=== PATIENT | male | born 1950 | race African-American/Black ===

== ENCOUNTER 2017-06-18 22:48 | Emergency (ER) | payer OTHER ==
[~2017-06-18] VITALS: Ht 172.7 cm; Wt 75.8 kg
--- NOTE | ~2017-06-18 | EKG ---
[address] [place] [address] ELECTROCARDIOGRAM REPORT Name: ABIODUN MCKEON JR [id number] Admission: 06/18/17 Attend Phys: Discharge: 06/19/17 Date of : 54 Report #: [id number] THIS REPORT FOR: //name// [facility] ED Test Date: 2017-06-18 Test Time: 23:30:01 Pat Name: ABIODUN MCKEON Department: Room: 170 Gender: M Patient Registration Rep: THERESA : 1950 Requested By: Alana Portillo Order Number: [id number] MD: Jostin Omer Measurements Intervals [place] Rate: 64 P: 45 MD: 155 QRS: 27 QRSD: 90 T: 160 QT: 385 QTc: 398 Interpretive Statements Sinus rhythm Probable left atrial enlargement LVH with secondary repolarization abnormality Compared to ECG 11/11/2008 12:05:52 Early repolarization now present Electronically Signed On 06-19-2017 13:27:40 [employer] by Jostin Omer [email or web address] <ELECTRONICALLY SIGNED> By: Jostin Omer MD 06/19/17 1327 29 29 Jostin Omer MD /DAVID
[2017-06-18 22:55] VITALS: BP 159/74
[2017-06-18 23:23] LABS: ABSOLUTE NEUTROPHILS 2.2 thou/uL (1.4-8.2); BASOPHILS 0.6 % (0.0-2.0); EOSINOPHILS 0.5 % (0.0-3.0); HEMATOCRIT 38.2 % (42.0-52.0); MCH 33.1 pg (26.0-34.0); MCV 97.3 fL (80.0-100.0); MONOCYTES 11.9 % (1.0-8.0); PLATELET COUNT 185 thou/uL (150-400); RBC 3.92 mil/uL (4.50-6.00); WBC 5.3 thou/uL (4.0-11.0)
[2017-06-18 23:34] LABS: ANION GAP 4 mmol/L (7-16); BUN 19 mg/dL (7-18); CALCIUM 9.8 mg/dL (8.5-10.1); CHLORIDE 102 mmol/L (98-107); CO2 32 mmol/L (21-32); CREATININE 1.3 mg/dL (0.7-1.3); GLUCOSE 100 mg/dL (74-106); POTASSIUM 5.3 mmol/L (3.5-5.1); SODIUM 138 mmol/L (136-145)
[2017-06-18 23:42] LABS: ALBUMIN 3.4 g/dL (3.4-5.0); SGOT 32 U/L (15-37); SGPT 29 U/L (30-65); TOTAL BILIRUBIN 0.5 mg/dL (<0.1-1.0); TOTAL PROTEIN 7.7 g/dL (6.4-8.2); TROPONIN-I < 0.04 ng/mL (<0.06)
[2017-06-19 00:17] VITALS: BP 159/74
[2017-06-19] MEDS ORDERED: HYDROCHLOROTHIA25 M2 PO (00:18)
[2017-06-19] MEDS ORDERED: PLAVIX 75 MG TA75 M1 PO (00:19)
[2017-06-19] MEDS ORDERED: GLUCOTROL5 MG PO (00:19)
[2017-06-19] MEDS ORDERED: HYDRALAZINE 10M10 MG PO (00:19)
[2017-06-19] MEDS ORDERED: NORVASC10 MG PO (00:19)
[2017-06-19] MEDS ORDERED: TRICOR145 MG PO (00:19)
[2017-06-19] MEDS ORDERED: LIPITOR80 MG PO (00:20)
[2017-06-19] MEDS ORDERED: CYMBALTA20 MG PO (00:20)
[2017-06-19] MEDS ORDERED: METFORMIN HCL500 MG PO (00:21)
[2017-06-19] MEDS ORDERED: LASIX 20 MG TAB20 MG PO (00:21)
[2017-06-19] MEDS ORDERED: ISOSORBIDE MONO60 M1 PO (00:21)
[2017-06-19] MEDS ORDERED: CARVEDILOL3.125 MG PO (00:21)
[2017-06-19 01:02] VITALS: BP 151/76
== END 2017-06-19 01:04 | disposition left against medical advice (07) ==
LOC: ER 22:48 → EROBS 06-19 00:19 → ER 06-19 00:19
PROVIDERS: Nurse Practitioner Family
DX: R07.9 Chest pain, unspecified (principal); I10 Essential (primary) hypertension; E11.9 Type 2 diabetes mellitus without complications; F17.210 Nicotine dependence, cigarettes, uncomplicated